=== PATIENT | male | born 1995 | race Caucasian/White ===

== ENCOUNTER 2022-06-30 13:02 | Emergency (ER) | payer OTHER ==
[2022-06-30 13:10] VITALS: BP 111/63; PULSE 86; RESP 20; TEMP 97.8; BMI 28.3
[2022-06-30] MEDS ORDERED: METHOCARBAMOL 500 MG TABLET PO ONE (13:46)
[2022-06-30] MEDS ORDERED: KETOROLAC TROMETHAMINE 30 MG/1 ML VIAL IM ONE (13:46)
[2022-06-30] MEDS ORDERED: KETOROLAC TROMETHAMINE 30 MG/1 ML VIAL ONE (13:52)
[2022-06-30] MEDS ORDERED: METHOCARBAMOL 500 MG TABLET ONE (13:52)
== END 2022-06-30 14:25 | disposition home or self-care (01) ==
LOC: JERFT 13:02
PROC: 3E023GC Introduction of Other Therapeutic Substance into Muscle, Percutaneous Approach (ICD-10-PCS; principal; 2022-06-30)
DX: M25.512 Pain in left shoulder (principal)
CPT/HCPCS: 73030-TC-LT-FY; 99284-25

== ENCOUNTER 2024-04-21 08:48 | Emergency (ER) | payer OTHER, BC ==
[2024-04-21 09:03] VITALS: BMI 30.9
[2024-04-21] MEDS ORDERED: ACETAMINOPHEN 500 MG TABLET (FP) ONE (09:12)
[2024-04-21] MEDS: ACETAMINOPHEN 500 MG TABLET (FP) PO ONE (09:15)
[2024-04-21 10:29] VITALS: BP 107/60; PULSE 80; RESP 17; TEMP 99.2
== END 2024-04-21 10:33 | disposition home or self-care (01) ==
LOC: JERFT 08:48
DX: R50.9 Fever, unspecified (principal); J02.0 Streptococcal pharyngitis; R51.9 Headache, unspecified; R09.81 Nasal congestion; Z20.822 Contact with and (suspected) exposure to COVID-19
CPT/HCPCS: 0241U-QW; 87651; 99283-25

== ENCOUNTER 2024-07-24 10:13 | Emergency (ER) | payer OTHER ==
[2024-07-24 10:22] VITALS: BP 127/73; RESP 18; TEMP 97.4
[2024-07-24 11:25] VITALS: PULSE 69
[2024-07-24] MEDS ORDERED: IBUPROFEN 400 MG TABLET (FP) PO ONE (11:30)
[2024-07-24] MEDS ORDERED: METHOCARBAMOL 500 MG TABLET ONE (11:31)
[2024-07-24] MEDS: IBUPROFEN 400 MG TABLET (FP) PO ONE (11:33)
[2024-07-24] MEDS: METHOCARBAMOL 500 MG TABLET PO ONE (11:34)
== END 2024-07-24 14:21 | disposition home or self-care (01) ==
LOC: JERFT 10:13
DX: S29.012A Strain of muscle and tendon of back wall of thorax, initial encounter (principal); S20.211A Contusion of right front wall of thorax, initial encounter; M76.892 Other specified enthesopathies of left lower limb, excluding foot; W01.198A Fall on same level from slipping, tripping and stumbling with subsequent striking against other object, initial encounter
CPT/HCPCS: 71101-TC-RT-FY; 72070-TC-FY; 72125-TC; 73030-TC-RT-FY; 73502-TC-LT-FY; 99284-25